=== PATIENT | female | born 1990 | race Two or more races ===

== ENCOUNTER 2018-11-02 01:02 | Emergency (ER) | payer OTHER ==
[~2018-11-02] VITALS: Ht 165.1 cm; Wt 52.2 kg
[2018-11-02] MEDS ORDERED: CEPHALEXIN500 MG PO (01:54)
== END 2018-11-02 02:17 | disposition home or self-care (01) ==
LOC: ER 01:02
DX: S60.811A Abrasion of right wrist, initial encounter (principal); S60.211A Contusion of right wrist, initial encounter; V19.9XXA Pedal cyclist (driver) (passenger) injured in unspecified traffic accident, initial encounter; Y93.89 Activity, other specified; Y92.89 Other specified places as the place of occurrence of the external cause; Y99.8 Other external cause status

== ENCOUNTER 2018-11-10 09:15 | Emergency (ER) | payer OTHER ==
[~2018-11-10] VITALS: Ht 165.1 cm; Wt 52.2 kg
[~2018-11-10 09:15] MED LIST: CEPHALEXIN500 MG PO
== END 2018-11-10 14:12 | disposition home or self-care (01) ==
LOC: ER 09:15
DX: F06.4 Anxiety disorder due to known physiological condition (principal)

== ENCOUNTER 2019-09-24 06:26 | Emergency (ER) | payer OTHER ==
[~2019-09-24] VITALS: Ht 165.1 cm; Wt 53.5 kg
== END 2019-09-24 09:47 | disposition home or self-care (01) ==
LOC: ER 06:26
DX: S60.511A Abrasion of right hand, initial encounter (principal); W26.8XXA Contact with other sharp object(s), not elsewhere classified, initial encounter; Y93.89 Activity, other specified; Y92.89 Other specified places as the place of occurrence of the external cause; Y99.8 Other external cause status